=== PATIENT | female | born 1985 | race Caucasian/White ===

== ENCOUNTER 2017-01-08 12:36 | Emergency (ER) | payer OTHER, SELFPAY ==
[~2017-01-08] VITALS: Ht 167.6 cm; Wt 113.4 kg
== END 2017-01-08 14:00 | disposition short-term general hospital (02) ==
LOC: ER 12:36
PROC: 2W3JX1Z Immobilization of Right Finger using Splint (ICD-10-PCS; principal; 2017-01-08)
DX: S62.636A Displaced fracture of distal phalanx of right little finger, initial encounter for closed fracture (principal); Z90.710 Acquired absence of both cervix and uterus; Z88.1 Allergy status to other antibiotic agents; W23.0XXA Caught, crushed, jammed, or pinched between moving objects, initial encounter